=== PATIENT | male | born 1985 | race Caucasian/White ===

== ENCOUNTER 2021-07-10 04:17 | Emergency (ER) | payer MEDICAID, SELFPAY ==
[2021-07-10 04:21] VITALS: BP 158/94; PULSE 104; PULSE 84; RESP 14; TEMP 37.1; O2SAT 97; O2SAT 99; BMI 35.7
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
--- NOTE | 2021-07-10 05:30 | PC.NURSE ---
[facility] # [phone]
[2021-07-10 05:37] LABS: COVID-19 Test Negative (Negative); IDNOW Serial# 16C4AD1C; Influenza A Negative (Negative); Influenza B2 Negative (Negative)
[2021-07-10 05:48] LABS: Ethanol < 10 mg/dL
[2021-07-10 05:50] LABS: MANUAL DIFF FLAG NO
[2021-07-10 05:51] LABS: Basophils Absolute Auto 0.1 X10*3/uL (0.0-0.2); Basophils Percent Auto 0.4 % (0-2); Eosinophils Absolute Auto 0.4 X10*3/uL (0.0-0.4); Hematocrit 40.8 % (42.0-52.0); Hemoglobin 13.4 g/dl (14.0-18.0); Imm Gran Abs Auto 0.03 X10*3/uL (0.00-0.03); Imm Gran Pct Auto 0.2 % (0.0-0.4); Lymphocytes Absolute Auto 2.8 X10*3/uL (1.2-4.9); Lymphocytes Percent Auto 22.2 % (20-40); Mean Corpuscular HGB Conc 32.8 g/dl (31.0-36.0); Mean Corpuscular Hemoglobin 28.3 pg (27.0-33.0); Mean Corpuscular Volume 86.3 fL (80.0-98.0); Monocytes Percent Auto 7.7 % (2-11); Neutrophils Absolute Auto 8.3 x10*3/uL (2.0-8.3); Neutrophils Percent Auto 66.5 % (45-73); Platelet Count 280 X10*3/uL (160-400); Red Blood Count 4.73 X10*6/uL (4.60-5.80); Red Cell Distribution Width 12.7 % (11.0-16.0); White Blood Count 12.4 X10*3/uL (4.8-10.8)
[2021-07-10 06:01] LABS: Alanine Aminotransferase 28 U/L (0-40); Albumin Level 4.2 g/dL (3.5-5.0); Alkaline Phosphatase 74 U/L (39-117); Anion Gap 12 (12-20); Aspartate Amino Transferase 27 U/L (5-37); Bilirubin Total 0.9 mg/dL (0.0-1.0); Blood Urea Nitrogen 12 mg/dL (9-16); Calcium 9.3 mg/dL (8.4-10.2); Carbon Dioxide 26 mmol/L (22-29); Chloride 105 mmol/L (96-108); Creatinine Clr Calc Pharmacy 86.6; Estimated Glomerular Filt Rate > 60; Glucose Random 108 mg/dL (60-115); Potassium 3.4 mmol/L (3.3-5.1); Sodium 140 mmol/L (135-145); Total Protein 7.3 g/dL (6.5-8.0)
--- NOTE | 2021-07-10 06:16 | PC.NURSE ---
[facility] #[phone]
--- NOTE | 2021-07-10 06:32 | PC.NURSE ---
Correct # for mom is [phone] Crystal. Lives in [place] and unable to hot die picker
--- NOTE | 2021-07-10 06:32 | PC.NURSE ---
Pt refused urine, MD aware.
--- NOTE | 2021-07-10 06:33 | PC.NURSE ---
Father's number [phone] Bernardo Glass
[2021-07-10 06:35] VITALS: BP 138/91; PULSE 78; RESP 16; O2SAT 98
== END 2021-07-10 06:52 | disposition home or self-care (01) ==
PROVIDERS: Emergency Provider Student in an Organized Health Care Education/Training Program
DX: F19.10 Other psychoactive substance abuse, uncomplicated (principal); Z20.822 Contact with and (suspected) exposure to COVID-19
CPT/HCPCS: 36415; 80053; 82077; 85025; 87502; 87635; 99284

== ENCOUNTER 2021-07-11 08:32 | Emergency (ER) | payer MEDICAID, SELFPAY ==
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
[2021-07-11 08:48] VITALS: BP 116/87; PULSE 92; O2SAT 97
[2021-07-11 08:58] VITALS: BP 119/78; PULSE 105; RESP 20; TEMP 36.7; O2SAT 99
[2021-07-11 10:28] VITALS: BP 129/89; PULSE 92; RESP 19; O2SAT 100
--- NOTE | 2021-07-11 10:44 | PC.NURSE ---
pt very lethargic, attempted to give dc paperwork 3 times, pt will not wake up enough for conversation. pt eventually awake enough for dc assessment and pt now very agitated, sts so youre kicking me out?! pt educated about work up and given follow up paperwork, pt sts he cannot walk and presents with blisters. providere brought to bedside to address. pt educated further about work up and pts negative results. when asked if pt needs anything or if this nurse may be able to help further and pt sts get the fuck out of my face . this rn leaving room following interaction.
== END 2021-07-11 10:52 | disposition home or self-care (01) ==
PROVIDERS: Emergency Provider Emergency Medicine
DX: S00.03XA Contusion of scalp, initial encounter (principal); F14.10 Cocaine abuse, uncomplicated; Y04.8XXA Assault by other bodily force, initial encounter; Y93.9 Activity, unspecified; Y92.9 Unspecified place or not applicable; Y99.9 Unspecified external cause status
CPT/HCPCS: 70450; 99284

== ENCOUNTER 2021-07-11 20:15 | Emergency (ER) | payer MEDICAID, SELFPAY ==
[2021-07-11 20:19] VITALS: BP 212/116; PULSE 130; O2SAT 100
[2021-07-11 20:21] VITALS: BP 155/93; PULSE 118; RESP 20; O2SAT 98; BMI 44.4
--- NOTE | 2021-07-11 20:39 | ED_ITS ---
HPI - Alcohol General Chief Complaint: ETOH/Substance Use Stated Complaint: AMS Time Seen by Provider: 07/11/21 20:39 Source: EMS Mode of arrival: EMS Limitations: no limitations History of Present Illness HPI narrative: Patient's history of PCP use brought by ambulance for increased agitation and hallucination after arrival patient was calm and cooperative Related Data Allergies Allergy/AdvReac Type Severity Reaction Status Date / Time Penicillins [PENICILLINS] Allergy Severe RASH Unverified 11/10/19 17:25 Review of Systems Review of Systems: Yes all other systems are reviewed and are negative [facility] Past Medical History Medical History Active substance abuse Social History Social History Alcohol intake: never Patient Tobacco Use Status: Never used Tobacco Substance Use Type: Crack/Cocaine Advance Directives: No Advance Directives Information Provided: Yes Physical Exam ED Vital Signs: Vital Signs - 24 hr 07/11/21 20:21 07/11/21 21:36 Pulse Rate 118 H 108 H Respiratory Rate 20 14 Blood Pressure 155/93 H 146/87 H Pulse Oximetry 98 100 BMI result Body Mass Index 44.4 Appearance: Alert. Oriented X3. No acute distress. Eyes: PERRLA, No Nystagmus ENT: Pharynx normal. Oral Mucosa moist Neck: Normal inspection. Neck supple. CVS: Normal heart rate and rhythm. Pulses normal. Respiratory: No respiratory distress. Equal air entry bilateral, no wheez ing/rales/rhonchi Abdomen: Soft and nontender. Bowel sounds are present, Skin: Skin warm and dry. Normal skin color. Normal skin turgor. Extremities: No lower extremity edema. No calf tenderness Neuro: Oriented X 3. No motor deficit. No sensory deficit.No cerebellar signs , cranial nerves II-XII intact MDM - Alcohol MDM Narrative Medical decision making narrative: Patient with history of PCP use on arrival patient Carp cooperative after sleeping for an hour patient felt better to go home will discharge patient home with family Lab Data Labs: Lab Results 07/11/21 07/11/21 Range/Units 21:17 21:17 COVID-19 (MICAELA) Negative (Negative) COVID-19 Clin Com See Note Influenza Type A (CHOCO) Negative (Negative) Influenza Type B (CHOCO) Negative (Negative) Influenza A & B Note See Note Discharge Plan Discharge Clinical Impression: PCP (phencyclidine) abuse Patient Disposition: Home, Self-Care Instructions: Polysubstance Abuse (ED) Additional Instructions: Stop using PCP and other drugs Follow-up with detox Interventions: ED Discharge Assessment Last Done: 07/11/21 21:42 Discharge Date/Time: 07/11/21 21:47
[2021-07-11 21:36] VITALS: BP 146/87; PULSE 108; RESP 14; O2SAT 100
[2021-07-11 21:41] LABS: COVID-19 Test Negative (Negative); IDNOW Serial# 08D9AD1C; Influenza A Negative (Negative); Influenza B2 Negative (Negative)
== END 2021-07-11 21:47 | disposition home or self-care (01) ==
PROVIDERS: Emergency Provider Internal Medicine
DX: F16.151 Hallucinogen abuse with hallucinogen-induced psychotic disorder with hallucinations (principal); Z79.899 Other long term (current) drug therapy; Z71.51 Drug abuse counseling and surveillance of drug abuser; Z20.822 Contact with and (suspected) exposure to COVID-19
CPT/HCPCS: 87502; 87635; 99281; 99283

== ENCOUNTER 2021-07-12 13:16 | Emergency (ER) | payer MEDICAID, SELFPAY ==
[2021-07-12 13:24] VITALS: BP 142/78; PULSE 136; O2SAT 96
[2021-07-12 13:31] VITALS: BP 138/74; PULSE 123; RESP 14; TEMP 36.6; O2SAT 96; BMI 41.5
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
[2021-07-12 16:39] VITALS: BP 131/72; PULSE 100; RESP 16; TEMP 36.5; O2SAT 97
--- NOTE | 2021-07-12 18:45 | PC.NURSE ---
patient ambulating to bathroom without difficulty. patient in no distress, provided food and beverage. comfortable with discharge plan
[2021-07-12 19:05] VITALS: BP 132/69; PULSE 89; RESP 18; O2SAT 97
== END 2021-07-12 19:09 | disposition home or self-care (01) ==
LOC: HO.ED 18:52
PROVIDERS: Emergency Provider Emergency Medicine
DX: R41.82 Altered mental status, unspecified (principal); F19.10 Other psychoactive substance abuse, uncomplicated
CPT/HCPCS: 99282

== ENCOUNTER 2021-12-15 14:36 | Emergency (ER) | payer MEDICAID, SELFPAY ==
--- NOTE | ~2021-12-15 | XR_ITS ---
EXAMINATION: XR CHEST CLINICAL INFORMATION: Chest pain. COMPARISON: Chest radiograph dated 06/24/2015. TECHNIQUE: Frontal view of the chest was obtained. FINDINGS: No significant abnormality is noted involving the heart, lungs, mediastinum, bony thorax or soft tissues. XR/XR chest 1V IMPRESSION: No acute cardiopulmonary process.
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
[2021-12-15 14:54] VITALS: BP 129/70; PULSE 87; RESP 20; TEMP 36.8; O2SAT 97; BMI 38.7
--- NOTE | 2021-12-15 14:54 | ECG_ITS ---
Test Reason : SOB Blood Pressure : / mmHG Vent. Rate : 083 BPM Atrial Rate : 083 BPM P-R Int : 126 ms QRS Dur : 090 ms QT Int : 388 ms P-R-T Axes : -14 019 033 degrees QTc Int : 455 ms Normal sinus rhythm Normal ECG When compared with ECG of 24-JUN-2015 13:16, No significant change was found Referred By: Anette Cook Electronically Signed By:MARÍA WALKER MD
[2021-12-15 15:33] LABS: COVID-19 Test Negative (Negative)
== END 2021-12-15 15:50 ==
PROVIDERS: Emergency Provider Emergency Medicine
DX: R06.02 Shortness of breath (principal); F33.1 Major depressive disorder, recurrent, moderate; F41.1 Generalized anxiety disorder; F43.0 Acute stress reaction; R05.9 Cough, unspecified; Z20.822 Contact with and (suspected) exposure to COVID-19; Z71.6 Tobacco abuse counseling; F17.200 Nicotine dependence, unspecified, uncomplicated
CPT/HCPCS: 71045; 87635; 93005; 99283